=== PATIENT | female | born 1965 | race Caucasian/White ===

== ENCOUNTER 2020-09-26 08:15 | Inpatient (IN) ==
[2020-09-26] MEDS ORDERED: Ondansetron 4 MG/2 ML VIAL IVP PRN (08:26)
[2020-09-26] MEDS ORDERED: *HR* HYDROcodone/Acet 5/325 mg TABLET PO PRN (08:26)
[2020-09-26] MEDS ORDERED: *HR* HYDROmorphone PF 0.5 MG/0.5 ML SYRINGE IVP PRN (08:26)
[2020-09-26] MEDS ORDERED: CeFAZolin Syr 2,000MG/20 ML 2,000 MG/20 ML SYRINGE IVPB ONE (08:39)
[2020-09-26] MEDS ORDERED: MetroNIDAZOLE 500 MG/100 ML 500 MG/100 ML BAG IVPB ONE (08:40)
[2020-09-26] MEDS ORDERED: *HR* Rocuronium Bromide 50 MG/5 ML VIAL ONE (16:47)
[2020-09-26] MEDS ORDERED: Sugammadex Sodium 200 MG/2 ML VIAL IV ONE (17:07)
[2020-09-26] MEDS ORDERED: *HR* FentaNYL (PF) 100 MCG/2 ML VIAL ONE (17:13)
[2020-09-26] MEDS ORDERED: Ondansetron ODT 4 MG TAB.RAPDIS SL PRN (17:32)
[2020-09-26] MEDS ORDERED: Naloxone 0.4 MG/ML INJ IVP PRN (17:32)
[2020-09-26] MEDS ORDERED: tiZANidine 4 MG TABLET PO PRN (17:37)
[2020-09-26] MEDS: Ibuprofen 600 MG TABLET PO SCH ×3 (18:40→20:48)
[2020-09-26] MEDS: *HR* OxyCODONE Immed Rel 5 MG TABLET PO PRN (18:59)
[2020-09-26] MEDS: Ringers Solution, Lactated 1,000 ML IVC SCH (19:47)
[2020-09-26] MEDS: D5% in 0.45% NACL 1,000 ML IVC SCH (19:47)
[2020-09-26] MEDS: traZODone 50 MG TABLET PO SCH (20:48)
[2020-09-27] MEDS: Ringers Solution, Lactated 1,000 ML IVC SCH (04:21)
[2020-09-27 04:37] LABS: BUN/Creatinine Ratio 15 (6-26); Blood Urea Nitrogen 9 mg/dL (6-20); Calcium 8.8 mg/dL (8.6-10.3); Carbon Dioxide 25 mEq/L (23-29); Chloride 106 mEq/L (98-107); Glucose 116 mg/dL (70-105); Magnesium 1.5 mg/dL (1.6-2.6); Osmolality,Calculated 286 (280-300); Phosphorous 3.6 mg/dL (2.7-4.5); Potassium 3.6 mEq/L (3.5-5.1); Sodium 138 mEq/L (136-145); eGFR For African Americans > 60 (> 60); eGFR For Non-African Americans > 60 (> 60)
[2020-09-27] MEDS: *HR* OxyCODONE Immed Rel 5 MG TABLET PO PRN ×2 (07:18→14:10)
[2020-09-27] MEDS: Ibuprofen 600 MG TABLET PO SCH ×2 (09:37→20:27)
[2020-09-27] MEDS: D5% in 0.45% NACL 1,000 ML IVC SCH (18:51)
[2020-09-27 20:21] LABS: Basophils % 0.3 %; Eosinophils % 0.4 %; Hematocrit 31.4 % (35.3-44.9); Hemoglobin 10.1 g/dL (11.5-15.4); Immature Granulocytes % 0.3 % (0-4); Lymphocytes # 1.4 K/mcL (0.6-4.6); Lymphocytes % 19.6 %; Mean Corpuscular HGB Conc 32.2 g/dL (31.6-35.5); Mean Corpuscular Hemoglobin 28.8 pg (28.0-33.3); Mean Corpuscular Volume 89.5 fL (83.0-100.0); Mean Platelet Volume 8.7 fL (9.4-12.4); Monocytes # 0.6 K/mcL (0.0-1.3); Monocytes % 8.3 %; Platelet Count 181 K/mcL (140-400); Red Blood Count 3.51 M/mcL (3.82-4.97); Red Cell Distribution Width 14.6 % (11.5-14.5); Segmented Neutrophils % 71.1 %
[2020-09-27] MEDS: traZODone 50 MG TABLET PO SCH (20:27)
[2020-09-27 20:40] LABS: BUN/Creatinine Ratio 11 (6-26); Blood Urea Nitrogen 7 mg/dL (6-20); Calcium 8.7 mg/dL (8.6-10.3); Carbon Dioxide 30 mEq/L (23-29); Chloride 104 mEq/L (98-107); Glucose 104 mg/dL (70-105); Osmolality,Calculated 284 (280-300); Potassium 3.8 mEq/L (3.5-5.1); Sodium 138 mEq/L (136-145); eGFR For African Americans > 60 (> 60); eGFR For Non-African Americans > 60 (> 60)
[2020-09-27 20:42] LABS: Magnesium 1.8 mg/dL (1.6-2.6); Phosphorous 1.8 mg/dL (2.7-4.5); Troponin I < 0.03 ng/mL (< 0.04)
[2020-09-28] MEDS: *HR* OxyCODONE Immed Rel 5 MG TABLET PO PRN (06:46)
[2020-09-28] MEDS ORDERED: *HR* Enoxaparin 40 MG/0.4 ML SYRINGE SQ SCH (07:00)
[2020-09-28] MEDS: Ibuprofen 600 MG TABLET PO SCH (08:49)
[2020-09-28] MEDS: Ringers Solution, Lactated 1,000 ML IVC SCH (08:50)
[2020-09-28] MEDS: D5% in 0.45% NACL 1,000 ML IVC SCH (08:53)
[2020-09-28] MEDS ORDERED: Potassium Phosphate 44 MEQ in 0.9 % Sodium Chloride 250 ML IVPB ONE (09:08)
[2020-09-28 14:55] VITALS: BP 109/68
== END 2020-09-28 16:20 | disposition home or self-care (01) | DRG 331 ==
LOC: SAMDAY 08:15 → 3ANU 18:03
PROVIDERS: ADMIT Surgery; ATTEND Surgery

== ENCOUNTER 2020-10-05 11:21 | Inpatient (IN) ==
[2020-10-05] MEDS ORDERED: Ondansetron 4 MG/2 ML VIAL IVP ONE (11:57)
[2020-10-05] MEDS ORDERED: 0.9 % Sodium Chloride 1,000 ML IVC ONE (11:57)
[2020-10-05] MEDS ORDERED: *HR* HYDROmorphone 2 MG/ML SYRINGE IVP ONE (11:57)
[2020-10-05] MEDS ORDERED: Isovue-370 500 ML BOTTLE IVP ONE (11:58)
[2020-10-05 12:24] LABS: Basophils # 0.1 K/mcL (0.0-0.2); Basophils % 0.6 %; Eosinophils # 0.3 K/mcL (0.0-0.6); Eosinophils % 4.2 %; Immature Granulocytes % 0.4 % (0-4); Lymphocytes # 1.4 K/mcL (0.6-4.6); Mean Corpuscular HGB Conc 32.4 g/dL (31.6-35.5); Mean Corpuscular Hemoglobin 28.8 pg (28.0-33.3); Mean Corpuscular Volume 88.9 fL (83.0-100.0); Mean Platelet Volume 8.5 fL (9.4-12.4); Monocytes # 0.5 K/mcL (0.0-1.3); Monocytes % 6.7 %; Neutrophils # 5.6 K/mcL (1.6-8.9); Platelet Count 438 K/mcL (140-400); Red Blood Count 4.16 M/mcL (3.82-4.97); Red Cell Distribution Width 13.5 % (11.5-14.5); Segmented Neutrophils % 70.1 %
[2020-10-05 12:28] LABS: Bilirubin,Urine Negative (Negative); Blood,Urine Trace (Negative); Clarity,Urine Clear (Clear); Color,Urine Yellow (Yellow); Glucose,Urine (UA) Normal (Normal); Ketones,Urine Negative (Negative); Leukocyte Esterase,Urine Trace (Negative); Mucus,Urine Many per lpf (None-Few); Nitrite,Urine Negative (Negative); Protein,Urine 50 mg/dL (Neg-Trace); Specific Gravity,Urine > 1.030 (1.010-1.025); Squamous Epithelial Cell,Urine Few per hpf (None-Few)
[2020-10-05] MEDS ORDERED: *HR* FentaNYL (PF) 100 MCG/2 ML VIAL IVP ONE (12:38)
[2020-10-05 12:42] LABS: Alanine Aminotransferase 17 Units/L (7-52); Albumin 3.8 g/dL (3.5-5.7); Albumin/Globulin Ratio 1.2 (1.1-2.2); Alkaline Phosphatase 81 Units/L (34-104); Aspartate Amino Transferase 13 Units/L (13-39); BUN/Creatinine Ratio 21 (6-26); Bilirubin,Direct 0.1 mg/dL (0.0-0.2); Bilirubin,Indirect 0.3 mg/dL (0.0-1.0); Bilirubin,Total 0.4 mg/dL (0.3-1.0); Blood Urea Nitrogen 16 mg/dL (6-20); Calcium 9.6 mg/dL (8.6-10.3); Carbon Dioxide 29 mEq/L (23-29); Chloride 99 mEq/L (98-107); Globulin 3.1 g/dL (2.4-3.5); Glucose 92 mg/dL (70-105); Lipase 12 Units/L (11-82); Magnesium 1.6 mg/dL (1.6-2.6); Osmolality,Calculated 285 (280-300); Potassium 4.1 mEq/L (3.5-5.1); Sodium 137 mEq/L (136-145); Total Protein 6.9 g/dL (6.4-8.9); eGFR For African Americans > 60 (> 60); eGFR For Non-African Americans > 60 (> 60)
[2020-10-05] MEDS ORDERED: Methylnaltrexone 12 MG/0.6 ML SYRINGE SQ ONE (14:10)
[2020-10-05] MEDS ORDERED: Isovue-370 500 ML BOTTLE PO ONE (17:18)
[2020-10-05] MEDS ORDERED: Morphine Sulfate 2 MG/ML SYRINGE IVP ONE (17:44)
[2020-10-05] MEDS ORDERED: Ondansetron 4 MG/2 ML VIAL IVP PRN (18:23)
[2020-10-05] MEDS ORDERED: 0.9 % Sodium Chloride 1,000 ML IVC SCH (18:30)
[2020-10-05] MEDS: Pantoprazole 40 MG VIAL IVP SCH (22:05)
[2020-10-06] MEDS: Pantoprazole 40 MG VIAL IVP SCH (08:53)
[2020-10-06] MEDS ORDERED: Naloxone 0.4 MG/ML INJ IVP PRN ×2 (09:09→20:48)
[2020-10-06] MEDS ORDERED: Ibuprofen 400 MG TABLET PO PRN (09:12)
[2020-10-06] MEDS ORDERED: Acetaminophen 325 MG TABLET PO PRN (09:12)
[2020-10-06] MEDS ORDERED: Ondansetron ODT 4 MG TAB.RAPDIS SL PRN ×2 (09:12→20:48)
[2020-10-06] MEDS ORDERED: 0.9 % Sodium Chloride w KCl 20 MEQ/1,000 ML MLS IVC SCH (09:15)
[2020-10-06 10:39] LABS: BUN/Creatinine Ratio 19 (6-26); Blood Urea Nitrogen 11 mg/dL (6-20); Calcium 9.5 mg/dL (8.6-10.3); Carbon Dioxide 26 mEq/L (23-29); Chloride 101 mEq/L (98-107); Glucose 78 mg/dL (70-105); Magnesium 1.7 mg/dL (1.6-2.6); Osmolality,Calculated 284 (280-300); Phosphorous 3.2 mg/dL (2.7-4.5); Potassium 3.9 mEq/L (3.5-5.1); Sodium 138 mEq/L (136-145); eGFR For African Americans > 60 (> 60); eGFR For Non-African Americans > 60 (> 60)
[2020-10-06] MEDS ORDERED: cefOXitin 2,000 MG in Water for inj. (sterile) 20 ML IVP ONE (16:00)
[2020-10-06] MEDS ORDERED: *HR* Heparin 5,000 UNIT/ML VIAL SQ SCH (16:00)
[2020-10-06] MEDS ORDERED: *HR* Propofol 200 MG/20 ML VIAL IVP ONE (17:42)
[2020-10-06] MEDS ORDERED: *HR* FentaNYL (PF) 100 MCG/2 ML VIAL ONE (17:42)
[2020-10-06 17:43] LABS: Adenovirus Not Detected (Not Detect); Bordetella Pertussis Not Detected (Not Detect); Chlamydophila pneumoniae Not Detected (Not Detect); Coronavirus 229E Not Detected (Not Detect); Coronavirus HKU1 Not Detected (Not Detect); Coronavirus NL63 Not Detected (Not Detect); Coronavirus OC43 Not Detected (Not Detect); Human Metapneumovirus Not Detected (Not Detect); Human Rhinovirus/Enterovirus Not Detected (Not Detect); Influenza A Subtype 2009 H1 Not Detected (Not Detect); Influenza B Not Detected (Not Detect); Mycoplasma pneumoniae Not Detected (Not Detect); Parainfluenza Virus 1 Not Detected (Not Detect); Parainfluenza Virus 2 Not Detected (Not Detect); Parainfluenza Virus 3 Not Detected (Not Detect); Parainfluenza Virus 4 Not Detected (Not Detect); Respiratory Syncytial Virus Not Detected (Not Detect); SARS-CoV-2 Not Detected (Not Detect)
[2020-10-06] MEDS ORDERED: Lidocaine -MPF 2% 2 ML VIAL ONE (17:43)
[2020-10-06] MEDS ORDERED: *HR* Rocuronium Bromide 50 MG/5 ML VIAL ONE (17:43)
[2020-10-06] MEDS ORDERED: Lidocaine -MPF 4% 5 ML AMPUL ONE (17:43)
[2020-10-06] MEDS ORDERED: Dexamethasone 4 MG/ML VIAL ONE (17:43)
[2020-10-06] MEDS ORDERED: Ondansetron 4 MG/2 ML VIAL ONE (17:43)
[2020-10-06] MEDS ORDERED: *HR* Succinylcholine 200 MG/10 ML VIAL IVP ONE (18:13)
[2020-10-06] MEDS ORDERED: Promethazine 6.25 MG in Water for inj. (sterile) 20 ML IVPB PRN (18:20)
[2020-10-06] MEDS ORDERED: *HR* HYDROmorphone PF 0.5 MG/0.5 ML SYRINGE IVP PRN (18:20)
[2020-10-06] MEDS ORDERED: Ondansetron 4 MG/2 ML VIAL IVP PRN (18:20)
[2020-10-06] MEDS ORDERED: *HR* HYDROcodone/Acet 5/325 mg TABLET PO PRN (18:20)
[2020-10-06] MEDS ORDERED: *HR* Labetalol 20 MG/4 ML SYRINGE IVP PRN (18:20)
[2020-10-06] MEDS ORDERED: CefOXitin 2,000 MG VIAL ONE (18:26)
[2020-10-06] MEDS ORDERED: *HR* HYDROMORPHONE 2 MG/ML VIAL ONE (18:29)
[2020-10-06] MEDS ORDERED: Albumin Human 5% 25.0 GM/500 ML IV.SOLN ONE (18:49)
[2020-10-06] MEDS ORDERED: Acetaminophen IV 1,000 MG/100 ML BAG IVPB ONE ×2 (18:51→20:48)
[2020-10-06] MEDS ORDERED: Sugammadex Sodium 200 MG/2 ML VIAL IV ONE (19:12)
[2020-10-06] MEDS ORDERED: *HR* Metoprolol 5 MG/5 ML VIAL IVP ONE (19:46)
[2020-10-06] MEDS: 0.9 % Sodium Chloride w KCl 20 MEQ/1,000 ML MLS IVC SCH (21:21)
[2020-10-06] MEDS: traZODone 50 MG TABLET PO SCH (21:24)
[2020-10-06] MEDS: Ketorolac 15 MG/ML VIAL IVP ONE ×2 (21:26→21:32)
[2020-10-06] MEDS: Ketorolac 15 MG/ML VIAL IVP SCH (23:52)
[2020-10-06] MEDS: *HR* Heparin 5,000 UNIT/ML VIAL SQ SCH (23:52)
[2020-10-07 04:39] LABS: Basophils % 0.4 %; Hematocrit 31.6 % (35.3-44.9); Immature Granulocytes % 0.4 % (0-4); Lymphocytes # 0.6 K/mcL (0.6-4.6); Lymphocytes % 8.5 %; Mean Corpuscular Hemoglobin 27.7 pg (28.0-33.3); Mean Corpuscular Volume 86.8 fL (83.0-100.0); Mean Platelet Volume 8.8 fL (9.4-12.4); Monocytes # 0.2 K/mcL (0.0-1.3); Monocytes % 3.2 %; Neutrophils # 6.2 K/mcL (1.6-8.9); Platelet Count 368 K/mcL (140-400); Red Blood Count 3.64 M/mcL (3.82-4.97); Red Cell Distribution Width 13.3 % (11.5-14.5); Segmented Neutrophils % 87.5 %; White Blood Count 7.1 K/mcL (4.3-11.1)
[2020-10-07 04:42] LABS: Hemoglobin 10.1 g/dL (11.5-15.4)
[2020-10-07 05:01] LABS: BUN/Creatinine Ratio 23 (6-26); Blood Urea Nitrogen 14 mg/dL (6-20); Calcium 8.8 mg/dL (8.6-10.3); Carbon Dioxide 23 mEq/L (23-29); Chloride 104 mEq/L (98-107); Glucose 121 mg/dL (70-105); Magnesium 2.1 mg/dL (1.6-2.6); Osmolality,Calculated 286 (280-300); Phosphorous 3.2 mg/dL (2.7-4.5); Potassium 4.5 mEq/L (3.5-5.1); Sodium 137 mEq/L (136-145); eGFR For African Americans > 60 (> 60); eGFR For Non-African Americans > 60 (> 60)
[2020-10-07] MEDS: Ketorolac 15 MG/ML VIAL IVP SCH ×4 (05:23→23:15)
[2020-10-07] MEDS: Pantoprazole 40 MG VIAL IVP SCH (05:23)
[2020-10-07] MEDS: *HR* Heparin 5,000 UNIT/ML VIAL SQ SCH ×3 (08:42→23:16)
[2020-10-07] MEDS: 0.9 % Sodium Chloride w KCl 20 MEQ/1,000 ML MLS IVC SCH (11:01)
[2020-10-07] MEDS: traZODone 50 MG TABLET PO SCH (20:18)
[2020-10-08] MEDS: 0.9 % Sodium Chloride w KCl 20 MEQ/1,000 ML MLS IVC SCH (02:10)
[2020-10-08] MEDS: Ketorolac 15 MG/ML VIAL IVP SCH ×3 (05:23→17:26)
[2020-10-08] MEDS: Pantoprazole 40 MG VIAL IVP SCH (05:24)
[2020-10-08] MEDS: *HR* Heparin 5,000 UNIT/ML VIAL SQ SCH ×2 (08:18→17:26)
[2020-10-08 11:05] LABS: BUN/Creatinine Ratio 27 (6-26); Blood Urea Nitrogen 16 mg/dL (6-20); Carbon Dioxide 24 mEq/L (23-29); Chloride 106 mEq/L (98-107); Glucose 87 mg/dL (70-105); Magnesium 1.3 mg/dL (1.6-2.6); Osmolality,Calculated 291 (280-300); Phosphorous 2.3 mg/dL (2.7-4.5); Potassium 3.9 mEq/L (3.5-5.1); Sodium 140 mEq/L (136-145); eGFR For African Americans > 60 (> 60); eGFR For Non-African Americans > 60 (> 60)
[2020-10-08] MEDS ORDERED: Potassium Phosphate 44 MEQ in 0.9 % Sodium Chloride 250 ML IVPB ONE (13:00)
[2020-10-08] MEDS: D5% in 0.45% NACL w KCl 20 MEQ/1,000 ML MLS IVC SCH (17:23)
[2020-10-08] MEDS: traZODone 50 MG TABLET PO SCH (20:41)
[2020-10-09] MEDS ORDERED: Chloraseptic Spray 177 ML BOTTLE MM PRN (00:17)
[2020-10-09] MEDS: Ketorolac 15 MG/ML VIAL IVP SCH ×4 (00:58→19:08)
[2020-10-09] MEDS: *HR* Heparin 5,000 UNIT/ML VIAL SQ SCH ×3 (00:59→15:21)
[2020-10-09] MEDS: Pantoprazole 40 MG VIAL IVP SCH (05:59)
[2020-10-09] MEDS: D5% in 0.45% NACL w KCl 20 MEQ/1,000 ML MLS IVC SCH (06:07)
[2020-10-09] MEDS: traZODone 50 MG TABLET PO SCH (20:35)
[2020-10-10] MEDS: *HR* Heparin 5,000 UNIT/ML VIAL SQ SCH ×2 (00:37→07:43)
[2020-10-10] MEDS: Ketorolac 15 MG/ML VIAL IVP SCH ×2 (00:37→05:32)
[2020-10-10 07:20] VITALS: BP 117/72
[2020-10-10] MEDS: D5% in 0.45% NACL w KCl 20 MEQ/1,000 ML MLS IVC SCH (09:38)
== END 2020-10-10 12:26 | disposition home or self-care (01) | DRG 355 ==
LOC: EMEROOARM 11:21 → 3ANU 11:21
PROVIDERS: ADMIT Surgery; ATTEND Surgery

== ENCOUNTER 2021-11-04 13:27 | Inpatient (IN) ==
[2021-11-04] MEDS ORDERED: CeFAZolin Syr 2,000MG/20 ML 2,000 MG/20 ML SYRINGE IVPB ONE ×2 (13:51→14:00)
[2021-11-04] MEDS ORDERED: MetroNIDAZOLE 500 MG/100 ML 500 MG/100 ML BAG IVPB ONE ×2 (13:54→14:00)
[2021-11-04] MEDS ORDERED: Acetaminophen IV 1,000 MG/100 ML BAG IVPB ONE ×2 (14:00→15:00)
[2021-11-04] MEDS ORDERED: Ringers Solution, Lactated 1,000 ML IVC ONE ×2 (14:00→15:00)
[2021-11-04] MEDS ORDERED: Famotidine 20 MG/2 ML VIAL IVP ONE ×2 (14:00→15:00)
[2021-11-04] MEDS ORDERED: Lidocaine HCL 4 ML Topical Solution (Laryng-O-Jet Kit Sterile Pak) TP ONE (14:08)
[2021-11-04] MEDS ORDERED: *HR* Midazolam HCl 2 MG/2 ML VIAL ONE (14:09)
[2021-11-04] MEDS ORDERED: *HR* Propofol 200 MG/20 ML VIAL IVP ONE (14:09)
[2021-11-04] MEDS ORDERED: *HR* FentaNYL (PF) 100 MCG/2 ML VIAL ONE ×2 (14:09→15:21)
[2021-11-04] MEDS ORDERED: Lidocaine -MPF 2% 5 ML VIAL ONE (14:12)
[2021-11-04] MEDS ORDERED: Ondansetron 4 MG/2 ML VIAL ONE (14:12)
[2021-11-04] MEDS ORDERED: *HR* Rocuronium Bromide 50 MG/5 ML VIAL ONE ×2 (14:12→15:50)
[2021-11-04] MEDS ORDERED: *HR* Succinylcholine 200 MG/10 ML VIAL IVP ONE (14:12)
[2021-11-04] MEDS ORDERED: *HR* HYDROmorphone PF 0.5 MG/0.5 ML SYRINGE IVP PRN (14:21)
[2021-11-04] MEDS ORDERED: *HR* FentaNYL (PF) 100 MCG/2 ML VIAL IVP PRN (14:21)
[2021-11-04] MEDS ORDERED: Ondansetron 4 MG/2 ML VIAL IVP PRN (14:22)
[2021-11-04] MEDS ORDERED: Albuterol 2.5 MG/3 ML NEBULIZER IH PRN (14:22)
[2021-11-04] MEDS ORDERED: Nitroglycerin 0.4 MG TAB.SUBL SL PRN (14:22)
[2021-11-04] MEDS ORDERED: Naloxone 0.4 MG/ML INJ IVP PRN ×2 (14:22→18:42)
[2021-11-04] MEDS ORDERED: Ketamine HCL *QUVA* 50mg (1mL) SYRINGE ONE (15:21)
[2021-11-04] MEDS ORDERED: ROPIVACAINE/PF/NS 0.25% 1 EACH SYRINGE INTRAART ONE (15:56)
[2021-11-04] MEDS ORDERED: Ropivacaine/PF 0.5% 30 ML VIAL ONE (15:58)
[2021-11-04] MEDS ORDERED: cefOXitin 1,000 MG, Sodium Chloride IRRigation 1,000 ML IR ONE (16:00)
[2021-11-04] MEDS ORDERED: Sugammadex Sodium 200 MG/2 ML VIAL IV ONE (16:41)
[2021-11-04] MEDS ORDERED: *HR* HYDROMORPHONE 2 MG/ML VIAL ONE (16:42)
[2021-11-04] MEDS ORDERED: Ondansetron ODT 4 MG TAB.RAPDIS SL PRN (18:42)
[2021-11-04] MEDS: 0.9 % Sodium Chloride 1,000 ML IVC SCH ×3 (19:25→20:45)
[2021-11-04 19:45] LABS: Basophils % 0.2 %; Eosinophils # 0.1 K/mcL (0.0-0.6); Eosinophils % 0.6 %; Hematocrit 37.6 % (35.3-44.9); Hemoglobin 12.3 g/dL (11.5-15.4); Immature Granulocytes % 0.2 % (0-4); Lymphocytes # 0.7 K/mcL (0.6-4.6); Lymphocytes % 8.9 %; Mean Corpuscular HGB Conc 32.7 g/dL (31.6-35.5); Mean Corpuscular Hemoglobin 29.4 pg (28.0-33.3); Mean Platelet Volume 8.6 fL (9.4-12.4); Monocytes # 0.2 K/mcL (0.0-1.3); Monocytes % 2.4 %; Neutrophils # 7.1 K/mcL (1.6-8.9); Platelet Count 216 K/mcL (140-400); Red Blood Count 4.18 M/mcL (3.82-4.97); Red Cell Distribution Width 12.5 % (11.5-14.5); Segmented Neutrophils % 87.7 %; White Blood Count 8.1 K/mcL (4.3-11.1)
[2021-11-04 20:00] LABS: BUN/Creatinine Ratio 14 (6-26); Blood Urea Nitrogen 13 mg/dL (6-20); Calcium 8.9 mg/dL (8.6-10.3); Carbon Dioxide 26 mEq/L (23-29); Chloride 105 mEq/L (98-107); Glucose 109 mg/dL (70-105); Magnesium 1.6 mg/dL (1.6-2.6); Osmolality,Calculated 287 (280-300); Phosphorous 2.8 mg/dL (2.7-4.5); Sodium 138 mEq/L (136-145); eGFR For African Americans > 60 (> 60); eGFR For Non-African Americans > 60 (> 60)
[2021-11-04] MEDS: *HR* HYDROmorphone 2 MG/ML SYRINGE IVP PRN (20:54)
[2021-11-04] MEDS: Acetaminophen IV 1,000 MG/100 ML BAG IVPB SCH (21:00)
[2021-11-05] MEDS: Acetaminophen IV 1,000 MG/100 ML BAG IVPB SCH ×4 (00:19→17:06)
[2021-11-05 04:59] LABS: Basophils % 0.2 %; Hematocrit 34.3 % (35.3-44.9); Hemoglobin 11.3 g/dL (11.5-15.4); Immature Granulocytes % 0.2 % (0-4); Lymphocytes # 0.5 K/mcL (0.6-4.6); Lymphocytes % 6.4 %; Mean Corpuscular HGB Conc 32.9 g/dL (31.6-35.5); Mean Corpuscular Hemoglobin 28.9 pg (28.0-33.3); Mean Corpuscular Volume 87.7 fL (83.0-100.0); Mean Platelet Volume 8.9 fL (9.4-12.4); Monocytes # 0.5 K/mcL (0.0-1.3); Monocytes % 5.5 %; Neutrophils # 7.4 K/mcL (1.6-8.9); Platelet Count 185 K/mcL (140-400); Red Blood Count 3.91 M/mcL (3.82-4.97); Red Cell Distribution Width 12.4 % (11.5-14.5); Segmented Neutrophils % 87.7 %; White Blood Count 8.5 K/mcL (4.3-11.1)
[2021-11-05] MEDS: 0.9 % Sodium Chloride 1,000 ML IVC SCH (05:01)
[2021-11-05] MEDS: *HR* HYDROmorphone 2 MG/ML SYRINGE IVP PRN (05:02)
[2021-11-05 05:53] LABS: BUN/Creatinine Ratio 16 (6-26); Blood Urea Nitrogen 12 mg/dL (6-20); Calcium 8.3 mg/dL (8.6-10.3); Carbon Dioxide 22 mEq/L (23-29); Chloride 105 mEq/L (98-107); Glucose 122 mg/dL (70-105); Magnesium 1.4 mg/dL (1.6-2.6); Osmolality,Calculated 281 (280-300); Phosphorous 3.4 mg/dL (2.7-4.5); Potassium 4.1 mEq/L (3.5-5.1); Sodium 135 mEq/L (136-145); eGFR For African Americans > 60 (> 60); eGFR For Non-African Americans > 60 (> 60)
[2021-11-05] MEDS: Ketorolac 30 MG/ML VIAL IVP SCH ×2 (07:56→23:46)
[2021-11-05] MEDS ORDERED: Prochlorperazine 10 MG/2 ML VIAL IVP STA (08:48)
[2021-11-05] MEDS ORDERED: Ketorolac 30 MG/ML VIAL IVP ONE ×2 (08:48→21:00)
[2021-11-05] MEDS: Gabapentin 100 MG CAPSULE PO SCH ×3 (13:43→19:51)
[2021-11-05] MEDS: *HR* OxyCODONE Immed Rel 5 MG TABLET PO PRN (13:43)
[2021-11-05] MEDS ORDERED: Acetaminophen/Aspirin/Caffeine TABLET PO PRN (16:56)
[2021-11-06] MEDS: *HR* OxyCODONE Immed Rel 5 MG TABLET PO PRN ×3 (02:34→20:17)
[2021-11-06 03:48] LABS: BUN/Creatinine Ratio 10 (6-26); Blood Urea Nitrogen 9 mg/dL (6-20); Calcium 8.8 mg/dL (8.6-10.3); Carbon Dioxide 26 mEq/L (23-29); Chloride 103 mEq/L (98-107); Glucose 110 mg/dL (70-105); Osmolality,Calculated 283 (280-300); Potassium 3.7 mEq/L (3.5-5.1); Sodium 137 mEq/L (136-145); eGFR For African Americans > 60 (> 60); eGFR For Non-African Americans > 60 (> 60)
[2021-11-06] MEDS: Acetaminophen IV 1,000 MG/100 ML BAG IVPB SCH (07:08)
[2021-11-06] MEDS: *HR* Enoxaparin 40 MG/0.4 ML SYRINGE SQ SCH (07:10)
[2021-11-06] MEDS: Ibuprofen 800 MG TABLET PO SCH ×2 (08:57→15:16)
[2021-11-06] MEDS: Gabapentin 100 MG CAPSULE PO SCH ×3 (08:57→20:17)
[2021-11-06] MEDS ORDERED: Acetaminophen/Aspirin/Caffeine TABLET PO SCH (09:00)
[2021-11-06] MEDS: Acetaminophen 325 MG TABLET PO SCH ×2 (12:09→16:56)
[2021-11-07] MEDS: Acetaminophen 325 MG TABLET PO SCH ×3 (00:39→13:13)
[2021-11-07] MEDS: Ibuprofen 800 MG TABLET PO SCH ×2 (00:40→10:20)
[2021-11-07] MEDS: *HR* Enoxaparin 40 MG/0.4 ML SYRINGE SQ SCH (06:24)
[2021-11-07] MEDS: Gabapentin 100 MG CAPSULE PO SCH ×2 (10:20→14:57)
[2021-11-07] MEDS: *HR* OxyCODONE Immed Rel 5 MG TABLET PO PRN (14:57)
[2021-11-07 15:11] VITALS: BP 108/75; PULSE 98; TEMP 97.9; O2SAT 98
== END 2021-11-07 16:10 | disposition home or self-care (01) | DRG 330 ==
LOC: SAMDAY 13:27 → 3ANU 18:19
PROVIDERS: ADMIT Surgery; ATTEND Surgery